=== PATIENT | female | born 1995 | race Two or more races ===

== ENCOUNTER 2024-08-03 11:28 | Emergency (ER) | payer OTHER ==
[~2024-08-03] VITALS: Ht 162.6 cm; Wt 88.0 kg
[2024-08-03 12:24] VITALS: BP 120/84; O2SAT 100
[2024-08-03] MEDS ORDERED: DEXAMETHASONE SODIUM PHOSPHATE 4 MG/ML VIAL ONE ×2 (14:11→15:08)
[2024-08-03] MEDS ORDERED: KETOROLAC TROMETHAMINE 60 MG VIAL IM ONE ×3 (14:11→15:08)
[2024-08-03] MEDS ORDERED: GUAIFEN/DEXTROMETHORPHAN/PE 10 ML BLIST.PACK PO ONE (14:12)
[2024-08-03] MEDS ORDERED: DEXAMETHASONE SODIUM PHOSPHATE 4 MG/ML VIAL IM ONE (14:15)
[2024-08-03] MEDS ORDERED: GUAIFENESIN/DEXTROMETHORPHAN 10ML BLIST.PACK PO ONE (14:15)
[2024-08-03 15:29] LABS: HEMATOCRIT 43.2 % (36.0-45.00); MEAN CELL VOLUME 87.7 fL (80.00-100.00); MEAN CORPUSCULAR HEMOGLOBIN 28.3 pg (27.00-32.0); MEAN CORPUSCULAR HGB CONC 32.3 g/dl (32.0-36.0); PLATELET COUNT 392 K/uL (150-450); RED BLOOD COUNT 4.92 M/uL (4.00-6.00)
[2024-08-03] MEDS ORDERED: ZITHROMAX500 MG PO (16:01)
[2024-08-03] MEDS ORDERED: TUSNEL LIQUID178 ML PO (16:01)
== END 2024-08-03 16:41 | disposition home or self-care (01) ==
LOC: ER 11:30
PROVIDERS: General Practice
DX: B34.9 Viral infection, unspecified (principal)